=== PATIENT | male | born 1950 ===

== ENCOUNTER 2017-09-17 16:16 | Observation (INO) | payer SELFPAY ==
[2017-09-17 16:16] VITALS: BMI 32.5
[2017-09-17 16:23] VITALS: RESP 18
[2017-09-17 17:57] LABS: BASO % 0.2 % (0.0-2.0); EOS # 0.1 K/uL (0.0-0.7); EOS % 0.5 % (0.0-4.0); HEMATOCRIT 46.1 % (35.0-51.0); LYMPH # 1.1 K/uL (1.0-4.3); LYMPH % 9.9 % (20.0-40.0); MEAN CELL VOLUME 88.3 fl (80.0-94.0); MEAN CORPUSCULAR HEMOGLOBIN 28.2 pg (27.0-31.0); MEAN PLATELET VOLUME 8.2 fl (7.2-11.7); MONO # 0.8 K/uL (0.0-0.8); MONO % 7.4 % (0.0-10.0); NEUT # 9.4 K/uL (1.8-7.0); NRBC % 0.1 % (0.0-0.0); PLATELET COUNT 250 K/uL (130-400); RED CELL DISTRIBUTION WIDTH 13.6 % (11.5-14.5); WHITE BLOOD COUNT 11.4 K/uL (4.8-10.8)
[2017-09-17 18:09] LABS: ALB/GLOB RATIO 1.3 (1.0-2.1); ALKALINE PHOSPHATASE 77 U/L (38-126); ALT/SGPT 23 U/L (21-72); AST/SGOT 27 U/L (17-59); BILIRUBIN,TOTAL 0.4 mg/dl (0.2-1.3); BLOOD UREA NITROGEN 12 mg/dl (9-20); CALCIUM 8.7 mg/dL (8.4-10.2); CARBON DIOXIDE 26 mmol/L (22-30); CHLORIDE 104 mmol/L (98-107); GFR AFRICAN-AMERICAN > 60; GLUCOSE,RANDOM 107 mg/dL (75-110); POTASSIUM 4.1 MMOL/L (3.6-5.0); SODIUM 140 mmol/l (132-148); TOTAL PROTEIN 7.9 G/DL (6.3-8.2)
[2017-09-17 18:16] LABS: PARTIAL THROMBOPLASTIN TIME 49.8 Seconds (25.6-37.1)
--- NOTE | 2017-09-17 18:51 | ED PDOC ---
HPI: Chest Pain Time Seen by Provider: 09/17/17 16:26 Chief Complaint (Nursing): Chest Pain Chief Complaint (Provider): Chest Pain and Cough History Per: Patient History/Exam Limitations: no limitations Onset/Duration Of Symptoms: Days (x3) Current Symptoms Are (Timing): Still Present Additional Complaint(s): Gautam Collins, a 66 year old male, with a past medical history pulmonary embolism, deep vein thrombosis hypercholesterolemia and pneumonia(diagnosed 3x in the past) presents to the ED complaining of chest pain and cough x3 days. As per patient the cough is productive of green sputum but no hemoptysis. Patent does not some chills rhinnorhea, body aches. Denies fever and shortness of breath. Patient further states that his right lower leg has been swollen for the past week. PMF: [facility] - Risk Factors PE Risk Factors: Pos: Previous DVT, Previous PE Past Medical History Reviewed: Historical Data, Nursing Documentation, Vital Signs Vital Signs: Last Vital Signs Temp 98.4 F 09/17/17 16:21 Pulse 106 H 09/17/17 16:34 Resp 18 09/17/17 16:21 BP 130/85 09/17/17 16:34 Pulse Ox 95 09/17/17 20:16 - Medical History PMH: Deep Vein Thrombosis, Hypercholesterolemia, Pneumonia, Pulmonary Embolism ( x2) Denies: HIV, Chronic Kidney Disease - Surgical History Surgical History: Cholecystectomy, Hernia Repair Other surgeries: Carson filter - Family History Family History: States: Unknown Family Hx, Diabetes, Hypertension Other Family History: Cancer - Social History Current smoker - smoking cessation education provided: No Ex-Smoker (has not smoked in the last 12 months): No Alcohol: None Drugs: Denies - Immunization History Hx Tetanus Toxoid Vaccination: No Hx Influenza Vaccination: No Hx Pneumococcal Vaccination: No - Home Medications Home Medications: Ambulatory Orders Medication Instructions Recorded Warfarin [Coumadin] 5 mg PO DAILY #7 tab 11/08/15 Simvastatin 20 mg PO DAILY 08/30/16 Albuterol HFA [Ventolin HFA 90 2 puff IH [id number] PRN #1 inhaler 10/25/16 mcg/actuation (8 g)] Azithromycin [Zithromax] 1 tab PO DAILY #6 tab 10/25/16 Promethazine/Codeine 5 ml PO Q12 PRN #100 ml 10/25/16 [Codeine/Promethazine 10 MG/5 Ml-6.25 MG/5 Ml] - Allergies Allergies/Adverse Reactions: Allergies Allergy/AdvReac Type Severity Reaction Status Date / Time Penicillins Allergy RASH Verified 09/17/17 16:21 MARION Risk Score for UA/NSTEMI - MARION Risk Score Age > 64: YES 3 or more CAD Risk Factors: NO Known CAD (Stenosis greater than 50%): NO Aspirin use in past 7 days: NO Severe Angina: NO EKG ST changes greater than 0.5mm: NO Positive Cardiac Marker: NO MARION Score: 1 Risk %: 5% Wells Criteria for PE - Wells Criteria for Pulmonary Embolism Clinical Signs and Symptoms of DVT: Yes P.E is #1 Diagnosis, or Equally Likely: No Heart Rate >100: Yes Previous, objectively diagnosed PE or DVT: Yes Hemoptysis: No Malignancy w/treatment within 6 months, or palliative: No Total Score: 6.0 Review of Systems ROS Statement: Except As Marked, All Systems Reviewed And Found Negative Constitutional: Positive for: Chills. Negative for: Fever ENT: Positive for: Nose Discharge Cardiovascular: Positive for: Chest Pain Respiratory: Positive for: Cough. Negative for: Shortness of Breath Musculoskeletal: Positive for: Other (swollen left lower leg) Physical Exam - Reviewed Nursing Documentation Reviewed: Yes Vital Signs Reviewed: Yes - Physical Exam Appears: Positive for: Non-toxic, No Acute Distress (tired appearing) Head Exam: Positive for: ATRAUMATIC, NORMOCEPHALIC Skin: Positive for: Warm, Dry Eye Exam: Positive for: EOMI, PERRL ENT: Negative for: Pharyngeal Erythema, Tonsillar Exudate Neck: Positive for: Painless ROM, Supple Cardiovascular/Chest: Positive for: Tachycardia. Negative for: Murmur Respiratory: Negative for: Accessory Muscle Use, Rales, Wheezing, Respiratory Distress Gastrointestinal/Abdominal: Positive for: Soft. Negative for: Tenderness Back: Positive for: Normal Inspection. Negative for: Decreased ROM Extremity: Positive for: Pedal Edema (RIGHT lower leg pitting: up to superior ankle), Calf Tenderness, Swelling. Negative for: Deformity Lymphatic: Negative for: Adenopathy Neurologic/Psych: Positive for: Alert. Negative for: Motor/Sensory Deficits - Laboratory Results Result Diagrams: 09/17/17 17:50 09/17/17 17:50 - ECG O2 Sat by Pulse Oximetry: 95 (RA) Pulse Ox Interpretation: Normal Medical Decision Making Medical Decision Makin Initial Impression 66 y/o female presenting with cough and chest pain Differential: Pulmonary Embolism, Pneumonia, Bronchitis, URI, Influenza, ACS, CHF Initial Plan: * EKG * B-type natriuretic * CMP * Troponin * CBC * Partial Thromboplastin * Prothrombin Time * Chest x-ray * Tylenol 975 PO * Zithromycin 500mg IV * Blood Culture * Urine Culture * Influenza A B * Duplex Lower Etrm * Reevaluation CXR unremarkable Labs: INR 3 (therapeutic), No emergently significant lab abnormalities. US negative for DVT Pt needs hospitalization for chest pain with cardiovascular risk factors, needs serial enzymes to r/o ACS. Scribe Attestation Documented by May Chaudhary acting as a scribe for Herminia You MD. Provider Attestation All medical record entries made by the Scribe were at my direction and personally dictated by me. I have reviewed the chart and agree that the record accurately reflects my personal performance of the history, physical exam, medical decision making, and the department course for this patient. I have also personally directed, reviewed, and agree with the discharge instructions and disposition. Disposition - Clinical Impression Clinical Impression: Chest pain Discussed With : Kev Morel Doctor Will See Patient In The: ED Counseled Patient/Family Regarding: Studies Performed, Diagnosis - Disposition Disposition Time: 19:00 Condition: FAIR - Pt Status Changed To: Hospital Disposition Of: Observation - POA Present On Arrival: Deep Vein Thrombosis / PE (history)
[2017-09-17 19:27] LABS: EOSINOPHIL 1 % (0-7); NEUTROPHIL 81 % (42-75); REACTIVE LYMPHOCYTES 3 % (0-0); TOTAL CELLS COUNTED 100
[2017-09-17 19:30] LABS: LARGE PLATELETS PRESENT
[2017-09-17 19:39] LABS: RBC URINE < 1 /hpf (0-3); URINE BILIRUBIN NEGATIVE (NEGATIVE); URINE COLOR STRAW (YELLOW); URINE GLUCOSE (UA) NEG (Normal); URINE KETONE NEGATIVE (NEGATIVE); URINE LEUKOCYTE ESTERASE NEG Leu/uL (Negative); URINE PROTEIN NEGATIVE (NEGATIVE); URINE UROBILINOGEN 0.2-1.0 mg/dL (0.2-1.0)
[2017-09-17 19:45] LABS: URINE BLOOD NEGATIVE (NEGATIVE)
--- NOTE | 2017-09-17 19:45 | US ---
EXAM: US Duplex Right Lower Extremity Veins CLINICAL HISTORY: 66 years old, male; Pain; Leg, lower; Right; Additional info: Swelling h/o dvt TECHNIQUE: Real-time ultrasound scan of the veins of the right lower extremity with color Doppler flow, spectral waveform analysis and compression. COMPARISON: No relevant prior studies available. FINDINGS: Deep veins: Unremarkable. No DVT in the visualized common femoral, femoral, proximal deep femoral or popliteal veins. The veins demonstrate normal color flow, are normally compressible, with normal phasic flow and/or augmentation response. Superficial veins: Unremarkable. Soft tissues: No acute findings. No popliteal cyst. IMPRESSION: No DVT.
[2017-09-17] MEDS ORDERED: Iodixanol 320 MG/ML 100 ML BOTTLE IV ONE (21:25)
[2017-09-17] MEDS ORDERED: Sodium Chloride 0.9% 50 ML IV ONE (21:25)
--- NOTE | 2017-09-17 21:27 | CP.PCM.HP ---
History of Present Illness - History of Present Illness History of Present Illness: [facility] #[id number] 66 y/o male with a PMHx remarkable for PE (s/p IVC filter 2014), DVTx3, and hypertriglyceridemia presented complaining of chest pain. Chest pain started roughly 3 days ago. Reports he started feeling under the weather with URI symptoms after seeing a sick friend and slowly felt more ill and developed chest pain/tightness. Pain is located substernally, is 5/10, constant, pressure like, nonradiating. Denies alleviating factors but reports it is exacerbated with coughing and deep respirations. Pt reports associated cough with minimal greenish phlegm production. Pt also reports subjective fever and chills during the past 3 days but denies any currently. Denies cardinal cardiac symptoms. Denies changes in exercise tolerance or chest pain with exertion. Denies headaches, changes in vision, dizziness, palpitations, N/V/D/C, left arm/jaw pain, diaphoresis, urinary symptoms, numbness/tingling. ROS: as per HPI PMD: [facility], last visit 05/2017, INR check PMHx: PE, DVTx3, hypertriglyceridemia Meds: Warfarin 3mg QD (as per eCW), Simvastatin 20mg QD ALL: penicillins (mild rash) PsurgHx: IVC Filter 2014, cholecystecomy, umbilicial hernia repair PHopsHx: pneumonia 2016 Social: denies tobacco/etoh abuse, denies drug abuse -lives at home with -Next of kin: , as per summary -full code FamilyHx: denies CAD, coagulapathy, OR, stroke ED Course: Vitals on presentation T 98.4, HR 107, BP 147/97, RR 18, POX 95% RA Labs CBC: 11.4>14.7/46.1<250 CMP: wnl Troponin I: <0.0120 NT-Pro-BNP: 57.8 Influenza A/B: neg INR: 3.0 Imaging EKG: NSR, normal axis, rate ~97 bpm CXR: no focal infiltrate CTA: No PE, multiple pulmonary nodules in left hemithorax that have increased in size since prior studies Ext u/s: No DVT Present on Admission - Present on Admission Any Indicators Present on Admission: Yes History of DVT/PE: Yes History of Uncontrolled Diabetes: No Urinary Catheter: No Decubitus Ulcer Present: No Past Patient History - Past Medical History & Family History Past Medical History?: Yes - Past Social History Alcohol: None Drugs: Denies - CARDIAC Hx Hypercholesterolemia: Yes - PULMONARY Hx Pneumonia: Yes Hx Pulmonary Embolism: Yes (x2) - NEUROLOGICAL Hx Neurological Disorder: No - HEENT Hx HEENT Problems: No - RENAL Hx Chronic Kidney Disease: No - ENDOCRINE/METABOLIC Hx Endocrine Disorders: No - HEMATOLOGICAL/ONCOLOGICAL Hx Human Immunodeficiency Virus (HIV): No - INTEGUMENTARY Hx Dermatological Problems: No - MUSCULOSKELETAL/RHEUMATOLOGICAL Hx Musculoskeletal Disorders: No - GASTROINTESTINAL Hx Gastrointestinal Disorders: No - GENITOURINARY/GYNECOLOGICAL Hx Genitourinary Disorders: No - PSYCHIATRIC Hx Psychophysiologic Disorder: No Hx Emotional Abuse: No Hx Physical Abuse: No Hx Substance Use: No - SURGICAL HISTORY Hx Cholecystectomy: Yes - ANESTHESIA Hx Anesthesia: Yes Hx Anesthesia Reactions: No Hx Malignant Hyperthermia: No Meds Allergies/Adverse Reactions: Allergies Allergy/AdvReac Type Severity Reaction Status Date / Time Penicillins Allergy RASH Verified 09/17/17 16:21 Physical Exam - Constitutional Appears: Well, Non-toxic, No Acute Distress - Head Exam Head Exam: ATRAUMATIC, NORMOCEPHALIC - Eye Exam Eye Exam: EOMI, Normal appearance, PERRL. absent: Conjunctival injection, Scleral icterus - ENT Exam ENT Exam: Mucous Membranes Moist - Neck Exam Neck exam: Positive for: Full Rom. Negative for: Lymphadenopathy, Tenderness - Respiratory Exam Respiratory Exam: Clear to Auscultation Bilateral, NORMAL BREATHING PATTERN Results - Vital Signs Recent Vital Signs: Last Vital Signs Temp 98.4 F 09/17/17 16:21 Pulse 106 H 09/17/17 16:34 Resp 18 09/17/17 16:21 BP 130/85 09/17/17 16:34 Pulse Ox 95 09/17/17 20:32 - Labs Result Diagrams: 09/17/17 17:50 09/17/17 17:50 Labs: Laboratory Results - last 24 hr 09/17/17 09/17/17 09/17/17 17:50 17:50 17:50 WBC 11.4 H RBC 5.22 Hgb 14.7 Hct 46.1 MCV 88.3 MCH 28.2 MCHC 32.0 L RDW 13.6 Plt Count 250 MPV 8.2 Neut % (Auto) 82.0 H Lymph % (Auto) 9.9 L [place] % (Auto) 7.4 Eos % (Auto) 0.5 Baso % (Auto) 0.2 Neut # 9.4 H Lymph # 1.1 [place] # 0.8 Eos # 0.1 Baso # 0.0 Neutrophils % (Manual) 81 H Band Neutrophils % 2 Lymphocytes % (Manual) 7 L Reactive Lymphs % 3 H Monocytes % (Manual) 6 Eosinophils % (Manual) 1 Platelet Estimate Normal Large Platelets Present PT INR APTT Sodium 140 Potassium 4.1 Chloride 104 Carbon Dioxide 26 Anion Gap 14 BUN 12 Creatinine 1.0 Est GFR ( Amer) > 60 Est GFR (Non-Af Amer) > 60 Random Glucose 107 Calcium 8.7 Total Bilirubin 0.4 AST 27 ALT 23 Alkaline Phosphatase 77 Troponin I < 0.0120 NT-Pro-B Natriuret Pep 57.8 Total Protein 7.9 Albumin 4.5 Globulin 3.4 Albumin/Globulin Ratio 1.3 Urine Color Urine Clarity Urine pH Ur Specific [place] Urine Protein Urine Glucose (UA) Urine Ketones Urine Blood Urine Nitrate Urine Bilirubin Urine Urobilinogen Ur Leukocyte Esterase Urine RBC (Auto) Ur Squamous Epith Cells Influenza Typ A,B (EIA) Negative for flu a/b 09/17/17 09/17/17 17:50 18:30 WBC RBC Hgb Hct MCV MCH MCHC RDW Plt Count MPV Neut % (Auto) Lymph % (Auto) [place] % (Auto) Eos % (Auto) Baso % (Auto) Neut # Lymph # [place] # Eos # Baso # Neutrophils % (Manual) Band Neutrophils % Lymphocytes % (Manual) Reactive Lymphs % Monocytes % (Manual) Eosinophils % (Manual) Platelet Estimate Large Platelets PT 34.0 H INR 3.0 H APTT 49.8 H Sodium Potassium Chloride Carbon Dioxide Anion Gap BUN Creatinine Est GFR ( Amer) Est GFR (Non-Af Amer) Random Glucose Calcium Total Bilirubin AST ALT Alkaline Phosphatase Troponin I NT-Pro-B Natriuret Pep Total Protein Albumin Globulin Albumin/Globulin Ratio Urine Color Straw Urine Clarity Clear Urine pH 7.0 Ur Specific [place] 1.008 Urine Protein Negative Urine Glucose (UA) Neg Urine Ketones Negative Urine Blood Negative Urine Nitrate Negative Urine Bilirubin Negative Urine Urobilinogen 0.2-1.0 Ur Leukocyte Esterase Neg Urine RBC (Auto) < 1 Ur Squamous Epith Cells < 1 Influenza Typ A,B (EIA) Assessment & Plan - Assessment and Plan (Free Text) Assessment: 66 y/o male with PMHx of PE, DVT, hypertriglyceridemia admitted for atypical chest pain to rule out ACS based on medical history. Plan: 1) Atypical Chest Pain -rule out ACS -Troponin I negative, will trend Q8H for two more values -telemetry monitoring -unlikely pneumonia based on negative imaging studies, afebrile, no cough during interview -PE/DVT ruled out based on negative imaging and INR 3.0 -will f/u CBC in AM to check WBC -s/p 500mg IV Azithromycin in ED -repeat EKG in AM -consider cardio consult 2) Hx of DVT/PE -INR 3.0 -C/w Warfarin 3mg QD 3) Metabolic Syndrome: -HbA1c 2016: 5.7 -Lipid Panel 2016: elevated triglycerides w/o hypercholesterolemia -c/w Simvastatin 20mg QD -f/u HbA1c, Lipid, TSH labs 4) Diet: -heart healthy 5) Code Status -full code 6) DVT Prophylaxis -INR 3.0 -c/w Warfarin 3mg QD
--- NOTE | 2017-09-17 22:27 | CT ---
EXAM: CT Angiography Chest With Intravenous Contrast CLINICAL HISTORY: 66 years old, male; Pain; Chest pain; Type not specified; Additional info: Chest pain h/o pe TECHNIQUE: Axial computed tomographic angiography images of the chest with intravenous contrast using pulmonary embolism protocol. All CT scans at this facility use one or more dose reduction techniques, viz.: automated exposure control; ma/kV adjustment per patient size (including targeted exams where dose is matched to indication; i.e. head); or iterative reconstruction technique. MIP reconstructed images were created and reviewed. Coronal and sagittal reformatted images were created and reviewed. CONTRAST: 95 mL of visipaque 320 administered intravenously. COMPARISON: CT - ANGIO CHEST PE PROTOCOL 2015-11-06 21:19 FINDINGS: Pulmonary arteries: No pulmonary embolism. Aorta: No thoracic aortic aneurysm. Lungs: No mass. No consolidation. Multiple pulmonary nodules are again identified within the right hemithorax. The first measures 5.2 mm, (series 4, image 45) increased from 4.5 mm on the previous examination (series 5, image 46). The second measures 4 mm (series 4, image 51) increased in size from 3 mm on the previous examination (series 5, image 51). The third measures 7 mm (series 4, image 53) increased in size from 6 mm on previous examination (series 5, image 54). Bibasilar atelectasis persists. Pleural spaces: No significant effusion. No pneumothorax. Heart: The heart is enlarged, without significant pericardial effusion. No evidence of right heart dysfunction. Bones: No acute fracture. Lymph nodes: No pathologically enlarged lymph nodes. IMPRESSION: No pulmonary embolism. Multiple pulmonary nodules within the right hemithorax, increasing in size as detailed above. ACR White Paper guidelines (MacMahon, et al. Radiology 2017; 284(1):228-43) suggest the following. For low-risk patients recommend follow-up chest CT at 3-6 months. If unchanged consider an additional follow-up CT at 18-24 months. For high-risk patients initial follow-up chest CT at 3-6 months and if unchanged, 18-24 months. Bibasilar atelectasis, unchanged from prior.
[2017-09-17] MEDS ORDERED: Albuterol HFA 90 mcg/actuation (8 g) IH PRN (22:43)
[2017-09-18 05:35] LABS: HEMATOCRIT 47.2 % (35.0-51.0); MEAN CELL VOLUME 88.1 fl (80.0-94.0); MEAN CORPUSCULAR HEMOGLOBIN 28.4 pg (27.0-31.0); MEAN CORPUSCULAR HGB CONC 32.2 g/dL (33.0-37.0); RED CELL DISTRIBUTION WIDTH 13.5 % (11.5-14.5); WHITE BLOOD COUNT 10.8 K/uL (4.8-10.8)
[2017-09-18 05:45] LABS: POTASSIUM 4.1 MMOL/L (3.6-5.0)
[2017-09-18 05:53] LABS: ALB/GLOB RATIO 1.3 (1.0-2.1); ALKALINE PHOSPHATASE 81 U/L (38-126); ALT/SGPT 34 U/L (21-72); AST/SGOT 23 U/L (17-59); BILIRUBIN,TOTAL 0.9 mg/dl (0.2-1.3); BLOOD UREA NITROGEN 12 mg/dl (9-20); CALCIUM 8.6 mg/dL (8.4-10.2); CARBON DIOXIDE 27 mmol/L (22-30); CHLORIDE 105 mmol/L (98-107); GFR AFRICAN-AMERICAN > 60; GLUCOSE,RANDOM 113 mg/dL (75-110); SODIUM 144 mmol/l (132-148); TOTAL PROTEIN 7.7 G/DL (6.3-8.2)
[2017-09-18 06:09] LABS: THYROID STIMULATING HORMONE 3.19 mIU/ML (0.46-4.68)
[2017-09-18] MEDS ORDERED: Pneumococcal 23-Valent Vaccine IM ONE (09:00)
[2017-09-18] MEDS ORDERED: Influenza Vaccine 18yr & older 0.5 ML/45 MCG SYR IM ONE (09:45)
--- NOTE | 2017-09-18 11:24 | CP.PCM.DIS ---
Provider - Provider Date of Admission: 09/17/17 19:35 Attending physician: Orlin Roman MD Time Spent in preparation of Discharge (in minutes): 25 Diagnosis - Discharge Diagnosis (1) Chest pain Status: Acute Priority: Medium Comment: improved (2) Productive cough Status: Acute Priority: Medium Comment: Improved. rx given for phenergan-codeine syrup (3) Dyslipidemia Status: Chronic Priority: Medium Comment: continue home meds (4) Hx of deep venous thrombosis Status: Chronic Priority: Medium Comment: Hx of DVT with hx of pulmonary embolus. continue Warfarin Hospital Course - Lab Results Lab Results: Most Recent Lab Values WBC 10.8 K/uL (4.8-10.8) 09/18/17 04:20 RBC 5.36 Mil/uL (4.40-5.90) 09/18/17 04:20 Hgb 15.2 g/dL (12.0-18.0) 09/18/17 04:20 Hct 47.2 % (35.0-51.0) 09/18/17 04:20 MCV 88.1 fl (80.0-94.0) 09/18/17 04:20 MCH 28.4 pg (27.0-31.0) 09/18/17 04:20 MCHC 32.2 g/dL (33.0-37.0) L 09/18/17 04:20 RDW 13.5 % (11.5-14.5) 09/18/17 04:20 Plt Count 257 K/uL (130-400) 09/18/17 04:20 MPV 8.2 fl (7.2-11.7) 09/17/17 17:50 Neut % (Auto) 82.0 % (50.0-75.0) H 09/17/17 17:50 Lymph % (Auto) 9.9 % (20.0-40.0) L 09/17/17 17:50 [place] % (Auto) 7.4 % (0.0-10.0) 09/17/17 17:50 Eos % (Auto) 0.5 % (0.0-4.0) 09/17/17 17:50 Baso % (Auto) 0.2 % (0.0-2.0) 09/17/17 17:50 Neut # 9.4 K/uL (1.8-7.0) H 09/17/17 17:50 Lymph # 1.1 K/uL (1.0-4.3) 09/17/17 17:50 [place] # 0.8 K/uL (0.0-0.8) 09/17/17 17:50 Eos # 0.1 K/uL (0.0-0.7) 09/17/17 17:50 Baso # 0.0 K/uL (0.0-0.2) 09/17/17 17:50 Neutrophils % (Manual) 81 % (42-75) H 09/17/17 17:50 Band Neutrophils % 2 % (0-2) 09/17/17 17:50 Lymphocytes % (Manual) 7 % (20-50) L 09/17/17 17:50 Reactive Lymphs % 3 % (0-0) H 09/17/17 17:50 Monocytes % (Manual) 6 % (0-10) 09/17/17 17:50 Eosinophils % (Manual) 1 % (0-7) 09/17/17 17:50 Platelet Estimate Normal (NORMAL) 09/17/17 17:50 Large Platelets Present 09/17/17 17:50 PT 26.5 Seconds (9.8-13.1) H D 09/18/17 04:20 INR 2.4 (0.9-1.2) H D 09/18/17 04:20 APTT 49.8 Seconds (25.6-37.1) H 09/17/17 17:50 Sodium 144 mmol/l (132-148) 09/18/17 04:30 Potassium 4.1 MMOL/L (3.6-5.0) 09/18/17 04:30 Chloride 105 mmol/L (98-107) 09/18/17 04:30 Carbon Dioxide 27 mmol/L (22-30) 09/18/17 04:30 Anion Gap 16 (10-20) 09/18/17 04:30 BUN 12 mg/dl (9-20) 09/18/17 04:30 Creatinine 1.0 mg/dl (0.8-1.5) 09/18/17 04:30 Est GFR ( Amer) > 60 09/18/17 04:30 Est GFR (Non-Af Amer) > 60 09/18/17 04:30 Random Glucose 113 mg/dL (75-110) H 09/18/17 04:30 Calcium 8.6 mg/dL (8.4-10.2) 09/18/17 04:30 Total Bilirubin 0.9 mg/dl (0.2-1.3) 09/18/17 04:30 AST 23 U/L (17-59) 09/18/17 04:30 ALT 34 U/L (21-72) 09/18/17 04:30 Alkaline Phosphatase 81 U/L (38-126) 09/18/17 04:30 Troponin I < 0.0120 ng/mL (0.00-0.120) 09/18/17 09:45 NT-Pro-B Natriuret Pep 57.8 pg/ml (0-900) 09/17/17 17:50 Total Protein 7.7 G/DL (6.3-8.2) 09/18/17 04:30 Albumin 4.3 g/dL (3.5-5.0) 09/18/17 04:30 Globulin 3.4 gm/dL (2.2-3.9) 09/18/17 04:30 Albumin/Globulin Ratio 1.3 (1.0-2.1) 09/18/17 04:30 Triglycerides 159 mg/DL (0-149) H D 09/17/17 04:20 Cholesterol 229 mg/dL (0-199) H 09/17/17 04:20 LDL Cholesterol Direct 138 mg/dL (0-129) H 09/17/17 04:20 HDL Cholesterol 50 MG/DL (30-70) 09/17/17 04:20 TSH 3rd Generation 3.19 mIU/ML (0.46-4.68) 09/17/17 04:20 Urine Color Straw (YELLOW) 09/17/17 18:30 Urine Clarity Clear (Clear) 09/17/17 18:30 Urine pH 7.0 (5.0-8.0) 09/17/17 18:30 Ur Specific [place] 1.008 (1.003-1.030) 09/17/17 18:30 Urine Protein Negative mg/dL (NEGATIVE) 09/17/17 18:30 Urine Glucose (UA) Neg mg/dL (Normal) 09/17/17 18:30 Urine Ketones Negative mg/dL (NEGATIVE) 09/17/17 18:30 Urine Blood Negative (NEGATIVE) 09/17/17 18:30 Urine Nitrate Negative (NEGATIVE) 09/17/17 18:30 Urine Bilirubin Negative (NEGATIVE) 09/17/17 18:30 Urine Urobilinogen 0.2-1.0 mg/dL (0.2-1.0) 09/17/17 18:30 Ur Leukocyte Esterase Neg [place]/uL (Negative) 09/17/17 18:30 Urine RBC (Auto) < 1 /hpf (0-3) 09/17/17 18:30 Ur Squamous Epith Cells < 1 /hpf (0-5) 09/17/17 18:30 Influenza Typ A,B (EIA) Negative for flu a/b (NEGATIVE) 09/17/17 17:50 - Hospital Course Hospital Course: 66 y/o male with PMHx of PE, DVTx3 and hypertriglyceridemia admitted for non- radiating substernal chest pain with productive cough and WBC 11.4. Patient was given single dose of Azithromycin 500mg in ED and had an extremity U/S negative for DVT, CXR negative for pneumonia, chest CTA negative for pulmonary embolism and three negative serial troponin levels. Patient's initial and repeat EKG's both showed a normal sinus rhythm. Patient's chest pain resolved and his productive cough improved while in hospital, with his WBC decreasing to 10.8. Pt will be discharged home in stable condition with prescription for phenergan- codeine cough syrup. Patient will follow up at the [facility] on 09/28 at 11am. Discharge Exam - Head Exam Head Exam: ATRAUMATIC, NORMOCEPHALIC - Eye Exam Eye Exam: EOMI, Normal appearance - ENT Exam ENT Exam: Mucous Membranes Moist, Normal Exam - Neck Exam Neck exam: Full Rom, Normal Inspection - Respiratory Exam Respiratory Exam: NORMAL BREATHING PATTERN, UNREMARKABLE. absent: Rales, Wheezes, Respiratory Distress - Cardiovascular Exam Cardiovascular Exam: REGULAR RHYTHM, +S1, +S2. absent: Tachycardia, JVD - GI/Abdominal Exam GI & Abdominal Exam: Normal Bowel Sounds, Soft - Rectal Exam Rectal Exam: Deferred - Extremities Exam Extremities exam: normal capillary refill, pedal edema, pedal pulses present Additional comments: Mild non-pitting unilateral edema to RLE, chronic in nature per patient. Non- tender - Neurological Exam Neurological exam: Alert, Oriented x3 - Psychiatric Exam Psychiatric exam: Normal Affect, Normal Mood - Skin Skin Exam: Dry, Intact, Normal Color Discharge Plan - Discharge Medications Prescriptions: Promethazine/Codeine [Phenergan/Codeine Oral Syrup] 5 ml PO Q12 PRN #100 ml PRN Reason: Cough - Follow Up Plan Condition: FAIR Disposition: HOME/ ROUTINE Patient education suggested?: No Instructions: Noncardiac Chest Pain (DC) Additional Instructions: Patient will follow up in [facility] at 11am on 09/28 for routine primary medical care. If experiences chest pain not related to cough and not relieved by rest, return to the nearest emergency room.
--- NOTE | 2017-09-18 11:59 | RAD ---
HISTORY: Cough, fever. Portable study 17:25. COMPARISON: 10/25/2016. TECHNIQUE: Chest PA and lateral FINDINGS: LUNGS: No active pulmonary disease. Improved aeration of the lungs compared to the prior study. PLEURA: No significant pleural effusion identified. No pneumothorax apparent. CARDIOVASCULAR: No radiographic findings to suggest acute or significant cardiovascular disease. OSSEOUS STRUCTURES: No significant abnormalities. VISUALIZED UPPER ABDOMEN: Normal. OTHER FINDINGS: None. IMPRESSION: No active disease. No significant interval change compared to the prior examination(s).
[2017-09-18 12:20] VITALS: BP 113/76; PULSE 91; TEMP 97.6; O2SAT 94
--- NOTE | 2017-09-18 13:43 | CARD ---
APPROVED REPORT EKG Measurement Heart [id number] <Conclusion> Normal sinus rhythm Normal ECG
--- NOTE | 2017-09-18 13:48 | CARD ---
APPROVED REPORT EKG Measurement Heart [id number] <Conclusion> Normal sinus rhythm Nonspecific T wave abnormality Abnormal ECG
== END 2017-09-18 13:37 | disposition home or self-care (01) ==
LOC: H.ER 16:16 → H.ERHOLD 19:35 → H.TEL 22:12
PROVIDERS: ADMIT Family Medicine; ATTEND Family Medicine
DX: R07.89 Other chest pain (principal); R05 Cough; E78.5 Hyperlipidemia, unspecified; Z88.0 Allergy status to penicillin; Z23 Encounter for immunization; Z86.711 Personal history of pulmonary embolism; Z86.718 Personal history of other venous thrombosis and embolism; E78.00 Pure hypercholesterolemia, unspecified; E78.1 Pure hyperglyceridemia; E88.81 Metabolic syndrome and other insulin resistance; Z79.01 Long term (current) use of anticoagulants
CPT/HCPCS: 36415; 71020; 71275; 80053; 80061; 81003; 83036; 83880; 84443; 84484; 85025; 85027; 85610; 85730; 87040; 87086; 87804; 90471; 93005; 93971; 99285; G0378; J0456; J7060; Q2035; Q9967

== ENCOUNTER 2017-11-05 18:45 | Emergency (ER) | payer SELFPAY ==
[2017-11-05 18:46] VITALS: BMI 32.5
[2017-11-05 18:59] VITALS: BP 126/77; PULSE 76; RESP 16; TEMP 97.7; O2SAT 100
--- NOTE | 2017-11-05 19:09 | ED PDOC ---
HPI: Male Pain Time Seen by Provider: 11/05/17 19:01 Chief Complaint (Nursing): Male Genitourinary Chief Complaint (Provider): Hematuria History Per: Patient History/Exam Limitations: no limitations Onset/Duration Of Symptoms: Days (x1) Current Symptoms Are (Timing): Still Present Additional Complaint(s): 66 year old male presents to the emergency department complaining of 4 episodes of hematuria, onset today. Associated with abdominal pain while urinating. Patient also reports having back pain for 2 weeks. Of note, patient has been taking Coumadin for blood clots for the past 5 years. PMD: [facility] Past Medical History Reviewed: Historical Data, Nursing Documentation, Vital Signs Vital Signs: Last Vital Signs Temp 97.7 F 11/05/17 18:57 Pulse 76 11/05/17 18:57 Resp 16 11/05/17 18:57 BP 126/77 11/05/17 18:57 Pulse Ox 100 11/05/17 18:57 - Medical History PMH: Deep Vein Thrombosis, HTN, Hypercholesterolemia, Pneumonia, Pulmonary Embolism (x2) Denies: HIV, Chronic Kidney Disease - Surgical History Surgical History: Cholecystectomy, Hernia Repair - Family History Family History: States: Diabetes, Hypertension - Immunization History Hx Tetanus Toxoid Vaccination: No Hx Influenza Vaccination: No Hx Pneumococcal Vaccination: No - Home Medications Home Medications: Ambulatory Orders Medication Instructions Recorded Simvastatin 20 mg PO DAILY 08/30/16 Promethazine/Codeine 5 ml PO Q12 PRN #100 ml 09/18/17 [Phenergan/Codeine Oral Syrup] Warfarin [Coumadin] 3 mg PO QD5 tab 09/18/17 Cephalexin [Keflex] 500 mg PO QID #28 capsule 11/05/17 - Allergies Allergies/Adverse Reactions: Allergies Allergy/AdvReac Type Severity Reaction Status Date / Time Penicillins Allergy RASH Verified 09/17/17 16:21 Review of Systems ROS Statement: Except As Marked, All Systems Reviewed And Found Negative Constitutional: Negative for: Fever, Chills Gastrointestinal: Positive for: Abdominal Pain (with urination) Genitourinary Male: Positive for: Dysuria, Hematuria Physical Exam - Reviewed Nursing Documentation Reviewed: Yes Vital Signs Reviewed: Yes - Physical Exam Appears: Positive for: Non-toxic, No Acute Distress Head Exam: Positive for: ATRAUMATIC, NORMAL INSPECTION, NORMOCEPHALIC Skin: Positive for: Normal Color, Warm, Dry Eye Exam: Positive for: EOMI, Normal appearance, PERRL Neck: Positive for: Normal, Painless ROM Cardiovascular/Chest: Positive for: Regular Rate, Rhythm. Negative for: Murmur Respiratory: Positive for: Normal Breath Sounds. Negative for: Accessory Muscle Use, Respiratory Distress Gastrointestinal/Abdominal: Positive for: Normal Exam, Soft. Negative for: Tenderness, Other (flank tenderness) Back: Positive for: Normal Inspection. Negative for: L CVA Tenderness, R CVA Tenderness Extremity: Positive for: Normal ROM. Negative for: Deformity Neurologic/Psych: Positive for: Alert, Oriented. Negative for: Motor/Sensory Deficits - Laboratory Results Result Diagrams: 11/05/17 19:24 11/05/17 19:24 - ECG O2 Sat by Pulse Oximetry: 100 (RA) Pulse Ox Interpretation: Normal - Progress ED Course And Treament: ROCEPHIN 1 GM IV X 1 DOSE IN ED WITHOUT ANY REACTION ADVISED NO COUMADIN TODAY AND F/U WITH PMD ON MONDAY FOR REPEAT INR WILL GIVE UROLOGY F/U. D/W FORENSIC ANTHROPOLOGIST WHO KNOWS PATIENT WELL. WILL COME TO ED TO D/W PATIENT F/U. Medical Decision Making Medical Decision Making: Time: 18:55 Initial Plan: --CMP --Lipase --CBC w/ differential --PTT --Prothrombin time --Urine culture --Urinalysis --Pending CT Abdomen/Pelvis without contrast --Reevaluation Time: 20:12 CT of Abdomen and Pelvis without IV contrast FINDINGS: Lower thorax: Mild atelectasis/scarring. Few pulmonary nodules, up to 0.5 cm. ABDOMEN: Liver: Unremarkable. Gallbladder and bile ducts: Cholecystectomy. No significant ductal dilation. Pancreas: Unremarkable. No ductal dilation. Spleen: No splenomegaly. Adrenals: No mass. Kidneys and ureters: No renal calculi. No hydronephrosis. Stomach and bowel: No definite mural thickening. No obstruction. Appendix: Normal caliber. No inflammation. PELVIS: Bladder: Unremarkable. No stones. Reproductive: Mildly enlarged prostate. ABDOMEN and PELVIS: Intraperitoneal space: No significant fluid collection. No free air. Bones/joints: No acute fracture. Soft tissues: Small umbilical hernia containing fat. Small inguinal hernias containing fat. Vasculature: IVC filter. Lymph nodes: No pathologically enlarged lymph nodes. IMPRESSION: 1. No definite CT evidence of urolithiasis. 2. Pulmonary nodules. Followup as clinically warranted. 3. Incidental/non-acute findings are described above. Thank you for allowing us to participate in the care of your patient. Dictated and Authenticated by: Armando Aguilar MD 11/05/2017 8:12 PM Eastern Time ([place] & [place]) Labs Reviewed: PT 45.1 INR 4.0 APTT 53.6 Scribe Attestation: Documented by Nayana Iyer, acting as a scribe for Afsaneh Nuñez PA-C Provider Scribe Attestation: All medical record entries made by the Scribe were at my direction and personally dictated by me. I have reviewed the chart and agree that the record accurately reflects my personal performance of the history, physical exam, medical decision making, and the department course for this patient. I have also personally directed, reviewed, and agree with the discharge instructions and disposition. Disposition - Clinical Impression Clinical Impression: Urinary tract infection - Patient ED Disposition Is Patient to be Admitted: No - Disposition Referrals: Joesph Waterman Jr., MD [Staff Provider] - Disposition: Routine/Home Disposition Time: 22:58 Condition: FAIR Additional Instructions: NO RUPERTO CEBALLOS COUMADIN HOY. SIGA CON CEBALLOS MEDICO SUGEY PARA CHEQUAR LA PRUEBA DE COUMADIN. LATA ZACKARY CECILE CON UROLOGO PARA CHEQUAR MAS. Prescriptions: Cephalexin [Keflex] 500 mg PO QID #28 capsule Instructions: Urinary Tract Infection in Men (ED), Elevated INR (ED) Forms: [employer] (Slovenian) Print Language: NAMIBIAN
[2017-11-05 19:43] LABS: BASO % 0.3 % (0.0-2.0); EOS # 0.1 K/uL (0.0-0.7); EOS % 1.2 % (0.0-4.0); HEMOGLOBIN 14.5 g/dL (12.0-18.0); LYMPH # 1.7 K/uL (1.0-4.3); LYMPH % 18.5 % (20.0-40.0); MEAN CELL VOLUME 87.1 fl (80.0-94.0); MEAN CORPUSCULAR HEMOGLOBIN 28.3 pg (27.0-31.0); MEAN CORPUSCULAR HGB CONC 32.5 g/dL (33.0-37.0); MEAN PLATELET VOLUME 8.4 fl (7.2-11.7); MONO # 0.9 K/uL (0.0-0.8); MONO % 9.8 % (0.0-10.0); NEUT # 6.3 K/uL (1.8-7.0); NEUT % 70.2 % (50.0-75.0); NRBC % 0.1 % (0.0-0.0); RBC 5.14 Mil/uL (4.40-5.90); RED CELL DISTRIBUTION WIDTH 13.6 % (11.5-14.5)
[2017-11-05 19:52] LABS: ALB/GLOB RATIO 1.3 (1.0-2.1); ALBUMIN 4.2 g/dL (3.5-5.0); ALT/SGPT 39 U/L (21-72); AST/SGOT 26 U/L (17-59); BLOOD UREA NITROGEN 15 mg/dl (9-20); CALCIUM 9.1 mg/dL (8.4-10.2); GFR AFRICAN-AMERICAN > 60; GFR NON-AFRICAN AMERICAN 56; LIPASE 122 U/L (23-300)
[2017-11-05 19:57] LABS: PARTIAL THROMBOPLASTIN TIME 53.6 Seconds (25.6-37.1)
[2017-11-05 19:59] LABS: PROTHROMBIN TIME 45.1 Seconds (9.8-13.1)
--- NOTE | 2017-11-05 20:12 | CT ---
EXAM: CT Abdomen and Pelvis Without Intravenous Contrast CLINICAL HISTORY: 66 years old, male; Pain; Abdominal pain; Other: B/l flank lt>rt hematuria; Additional info: Hematuria/back pain TECHNIQUE: Axial computed tomography images of the abdomen and pelvis without intravenous contrast. All CT scans at this facility use one or more dose reduction techniques, viz.: automated exposure control; ma/kV adjustment per patient size (including targeted exams where dose is matched to indication; i.e. head); or iterative reconstruction technique. Coronal and sagittal reformatted images were created and reviewed. COMPARISON: No relevant prior studies available. FINDINGS: Lower thorax: Mild atelectasis/scarring. Few pulmonary nodules, up to 0.5 cm. ABDOMEN: Liver: Unremarkable. Gallbladder and bile ducts: Cholecystectomy. No significant ductal dilation. Pancreas: Unremarkable. No ductal dilation. Spleen: No splenomegaly. Adrenals: No mass. Kidneys and ureters: No renal calculi. No hydronephrosis. Stomach and bowel: No definite mural thickening. No obstruction. Appendix: Normal caliber. No inflammation. PELVIS: Bladder: Unremarkable. No stones. Reproductive: Mildly enlarged prostate. ABDOMEN and PELVIS: Intraperitoneal space: No significant fluid collection. No free air. Bones/joints: No acute fracture. Soft tissues: Small umbilical hernia containing fat. Small inguinal hernias containing fat. Vasculature: IVC filter. Lymph nodes: No pathologically enlarged lymph nodes. IMPRESSION: 1. No definite CT evidence of urolithiasis. 2. Pulmonary nodules. Followup as clinically warranted. 3. Incidental/non-acute findings are described above.
[2017-11-05 20:49] LABS: URINE BILIRUBIN NEGATIVE (NEGATIVE); URINE BLOOD LARGE (NEGATIVE); URINE CLARITY TURBID (Clear); URINE COLOR RED (YELLOW); URINE GLUCOSE (UA) 50 mg/dL (Normal); URINE LEUKOCYTE ESTERASE NEG Leu/uL (Negative); URINE NITRATE NEGATIVE (NEGATIVE); URINE PROTEIN 100 mg/dL (NEGATIVE); URINE UROBILINOGEN 0.2-1.0 mg/dL (0.2-1.0)
[2017-11-05] MEDS ORDERED: cefTRIAXone (Rocephin) 1 gm Inj IVPB ONE (20:58)
== END 2017-11-05 23:20 | disposition home or self-care (01) ==
LOC: H.ER 18:45
DX: N39.0 Urinary tract infection, site not specified (principal); R79.1 Abnormal coagulation profile; E78.00 Pure hypercholesterolemia, unspecified; I10 Essential (primary) hypertension; Z79.01 Long term (current) use of anticoagulants; Z86.711 Personal history of pulmonary embolism; Z86.718 Personal history of other venous thrombosis and embolism; Z88.0 Allergy status to penicillin
CPT/HCPCS: 74176; 80053; 81003; 83690; 85025; 85610; 85730; 87086; 96365; 99283; J0696

== ENCOUNTER 2018-10-04 10:30 | Emergency (ER) | payer MEDICARE ==
[2018-10-04 10:36] VITALS: O2SAT 95
[2018-10-04 10:58] VITALS: BMI 25.7
[2018-10-04] MEDS ORDERED: Albuterol-Ipratrop 3 mg / 0.5 (3 ml) UD IH STA (11:00)
--- NOTE | 2018-10-04 11:00 | ED PDOC ---
HPI: SOB/CHF/COPD Time Seen by Provider: 10/04/18 10:49 Chief Complaint (Provider): shortness of breath History Per: Patient, Shop Helper (Hazel ID #[id number]) History/Exam Limitations: language barrier (namibian) Onset/Duration Of Symptoms: Days (x10) Current Symptoms Are (Timing): Still Present Additional Complaint(s): 67 year old male with pmHx of DVT, HCL, and recent diagnosis of pneumonia, p resents to ED with a complaint of cough associated with productive yellow/green phlegm, shortness of breath, and subjective fever for 10 days. Patient has a pending appointment with his PCP tomorrow but came to ED today because of worsening symptoms. Otherwise, he denies chest pain, nausea, vomiting, or diarrhea. PCP: [facility] Past Medical History Reviewed: Historical Data, Nursing Documentation, Vital Signs Vital Signs: Last Vital Signs Temp 99.1 F 10/04/18 10:35 Pulse 97 H 10/04/18 10:35 Resp BP 130/81 10/04/18 10:35 Pulse Ox 95 10/04/18 10:35 - Medical History PMH: Deep Vein Thrombosis, HTN, Hypercholesterolemia, Pneumonia, Pulmonary Embolism (x2) Denies: HIV, Chronic Kidney Disease - Surgical History Surgical History: Cholecystectomy, Hernia Repair - Family History Family History: States: Unknown Family Hx, Diabetes, Hypertension - Immunization History Hx Tetanus Toxoid Vaccination: No Hx Influenza Vaccination: No Hx Pneumococcal Vaccination: No - Home Medications Home Medications: Ambulatory Orders Medication Instructions Recorded Simvastatin 20 mg PO DAILY 08/30/16 Promethazine/Codeine 5 ml PO Q12 PRN #100 ml 09/18/17 [Phenergan/Codeine Oral Syrup] Warfarin [Coumadin] 3 mg PO QD5 tab 09/18/17 Cephalexin [Keflex] 500 mg PO QID #28 capsule 11/05/17 - Allergies Allergies/Adverse Reactions: Allergies Allergy/AdvReac Type Severity Reaction Status Date / Time Penicillins Allergy RASH Verified 09/17/17 16:21 Review of Systems ROS Statement: Except As Marked, All Systems Reviewed And Found Negative Constitutional: Positive for: Fever (subjective) Cardiovascular: Negative for: Chest Pain Respiratory: Positive for: Cough, Shortness of Breath, Sputum (yellow/green) Gastrointestinal: Negative for: Nausea, Vomiting, Diarrhea Physical Exam - Reviewed Nursing Documentation Reviewed: Yes Vital Signs Reviewed: Yes - Physical Exam Appears: Positive for: No Acute Distress Head Exam: Positive for: ATRAUMATIC, NORMAL INSPECTION, NORMOCEPHALIC Skin: Positive for: Normal Color Eye Exam: Positive for: Normal appearance ENT: Positive for: Normal ENT Inspection. Negative for: Pharyngeal Erythema Neck: Positive for: Normal, Supple Cardiovascular/Chest: Positive for: Regular Rate, Rhythm Respiratory: Positive for: Decreased Breath Sounds (mildly coarse at bases bilaterally). Negative for: Respiratory Distress Gastrointestinal/Abdominal: Positive for: Soft, Other (umbilical hernia reducible). Negative for: Tenderness Extremity: Positive for: Normal ROM (upper/lower). Negative for: Pedal Edema (bilateral), Calf Tenderness (bilateral) Neurologic/Psych: Positive for: Alert, Oriented. Negative for: Motor/Sensory Deficits - Laboratory Results Result Diagrams: 10/04/18 11:15 10/04/18 11:15 - ECG O2 Sat by Pulse Oximetry: 95 (RA) Pulse Ox Interpretation: Normal Medical Decision Making Medical Decision Making: Time: 1100 Initial Plan: * EKG * Labs * CXR * Solu-medrol 125mg IVP * Duoneb 3ml INH * Tessalon Perles 100 mg PO * Influenza AB Time: 1135 --CXR FINDINGS: LUNGS: The lungs are well inflated and clear. There is multifocal linear atelectasis in the right lower lobe. No focal consolidation. PLEURA: No pleural effusions or pneumothorax. CARDIOVASCULAR: The heart is normal in size. No aortic atherosclerotic calcification present. OSSEOUS STRUCTURES: Within normal limits for the patient's age. VISUALIZED UPPER ABDOMEN: Normal. OTHER FINDINGS: None. IMPRESSION: Multifocal linear atelectasis in the right lower lobe. No lobar pneumonia. Time: 1200 --Negative for flu. -- Scribe Attestation: Documented by Melvi Reed, acting as a scribe for Jose Antonio Coffman MD. Provider Scribe Attestation: All medical record entries made by the Scribe were at my direction and personally dictated by me. I have reviewed the chart and agree that the record accurately reflects my personal performance of the history, physical exam, medical decision making, and the department course for this patient. I have also personally directed, reviewed, and agree with the discharge instructions and disposition.
[2018-10-04] MEDS ORDERED: Albuterol-Ipratrop 3 mg / 0.5 (3 ml) UD ONE (11:06)
[2018-10-04 11:35] LABS: INR 2.2; PROTHROMBIN TIME 25.3 Seconds (9.8-13.1)
[2018-10-04 11:36] LABS: BASO % 0.6 % (0.0-2.0); EOS % 0.9 % (0.0-4.0); LYMPH # 0.8 K/uL (1.0-4.3); LYMPH % 17.3 % (20.0-40.0); MEAN CORPUSCULAR HEMOGLOBIN 28.8 pg (27.0-31.0); MEAN PLATELET VOLUME 8.2 fl (7.2-11.7); MONO # 0.7 K/uL (0.0-0.8); MONO % 15.4 % (0.0-10.0); NEUT # 2.9 K/uL (1.8-7.0); NEUT % 65.8 % (50.0-75.0); NRBC % 0.2 % (0.0-0.0); RBC 4.87 Mil/uL (4.40-5.90); RED CELL DISTRIBUTION WIDTH 13.4 % (11.5-14.5); WHITE BLOOD COUNT 4.5 K/uL (4.8-10.8)
[2018-10-04 11:37] LABS: PARTIAL THROMBOPLASTIN TIME 44.4 Seconds (25.6-37.1)
--- NOTE | 2018-10-04 11:38 | RAD ---
Date of service: 10/04/2018 HISTORY: dyspnea COMPARISON: 09/17/2017 FINDINGS: LUNGS: The lungs are well inflated and clear. There is multifocal linear atelectasis in the right lower lobe. No focal consolidation. PLEURA: No pleural effusions or pneumothorax. CARDIOVASCULAR: The heart is normal in size. No aortic atherosclerotic calcification present. OSSEOUS STRUCTURES: Within normal limits for the patient's age. VISUALIZED UPPER ABDOMEN: Normal. OTHER FINDINGS: None. IMPRESSION: Multifocal linear atelectasis in the right lower lobe. No lobar pneumonia.
[2018-10-04 11:44] LABS: ALB/GLOB RATIO 1.3 (1.0-2.1); ALBUMIN 4.1 g/dL (3.5-5.0); ALT/SGPT 31 U/L (21-72); AST/SGOT 32 U/L (17-59); BLOOD UREA NITROGEN 18 mg/dl (9-20); CALCIUM 8.8 mg/dL (8.4-10.2); GFR NON-AFRICAN AMERICAN > 60
[2018-10-04 11:54] LABS: B-TYPE NATRIURETIC PEPTIDE 39.8 pg/ml (0-900)
--- NOTE | 2018-10-04 12:46 | ED PDOC ---
HPI: SOB/CHF/COPD Time Seen by Provider: 10/04/18 10:49 Chief Complaint (Nursing): Cough, Cold, Congestion Chief Complaint (Provider): shortness of breath History Per: Patient, Desk Manager (Hazel ID#[id number]) History/Exam Limitations: language barrier (citizen of [place]) Onset/Duration Of Symptoms: Days (x10) Current Symptoms Are (Timing): Still Present Additional Complaint(s): 67 year old male with pmHx of DVT, HCL, and recent diagnosis of pneumonia, presents to ED with a complaint of cough associated with productive yellow/green sputum, shortness of breath, and subjective fever for 10 days. Patient has a pending appointment with his PCP tomorrow but came to ED today because of worsening symptoms. Otherwise, he denies any chest pain, nausea, vomiting, or diarrhea. PCP: [facility] Past Medical History Reviewed: Historical Data, Nursing Documentation, Vital Signs Vital Signs: Last Vital Signs Temp 99.1 F 10/04/18 10:35 Pulse 97 H 10/04/18 10:35 Resp BP 130/81 10/04/18 10:35 Pulse Ox 95 10/04/18 10:35 - Medical History PMH: Deep Vein Thrombosis, HTN, Hypercholesterolemia, Pneumonia, Pulmonary Embolism (x2) Denies: HIV, Chronic Kidney Disease - Surgical History Surgical History: Cholecystectomy, Hernia Repair - Family History Family History: States: Unknown Family Hx, Diabetes, Hypertension - Immunization History Hx Tetanus Toxoid Vaccination: No Hx Influenza Vaccination: No Hx Pneumococcal Vaccination: No - Home Medications Home Medications: Ambulatory Orders Medication Instructions Recorded RX: Simvastatin 20 mg PO DAILY 08/30/16 RX: Promethazine/Codeine 5 ml PO Q12 PRN #100 ml 09/18/17 [Phenergan/Codeine Oral Syrup] RX: Warfarin [Coumadin] 3 mg PO QD5 tab 09/18/17 Cephalexin [Keflex] 500 mg PO QID #28 capsule 11/05/17 Albuterol Sulfate [Proair Hfa] 0.09 mg IH Q6H PRN #2 inh 10/04/18 Azithromycin [Zithromax] 250 mg PO DAILY 5 Days tab 10/04/18 Benzonatate [Tessalon Perles] 100 mg PO BID PRN 5 Days sgl 10/04/18 RX: predniSONE [predniSONE Tab] 20 mg PO BID 5 Days tab 10/04/18 - Allergies Allergies/Adverse Reactions: Allergies Allergy/AdvReac Type Severity Reaction Status Date / Time Penicillins Allergy RASH Verified 09/17/17 16:21 Review of Systems ROS Statement: Except As Marked, All Systems Reviewed And Found Negative Constitutional: Positive for: Fever (subjective) Cardiovascular: Negative for: Chest Pain Respiratory: Positive for: Cough, Shortness of Breath, Sputum (yellow/green) Gastrointestinal: Negative for: Nausea, Vomiting, Diarrhea Physical Exam - Reviewed Nursing Documentation Reviewed: Yes Vital Signs Reviewed: Yes - Physical Exam Appears: Positive for: No Acute Distress Head Exam: Positive for: ATRAUMATIC, NORMAL INSPECTION, NORMOCEPHALIC Skin: Positive for: Normal Color Eye Exam: Positive for: Normal appearance ENT: Positive for: Normal ENT Inspection. Negative for: Pharyngeal Erythema Neck: Positive for: Normal, Supple Cardiovascular/Chest: Positive for: Regular Rate, Rhythm Respiratory: Positive for: Decreased Breath Sounds (mildly coarse at bases bilaterally). Negative for: Respiratory Distress Gastrointestinal/Abdominal: Positive for: Soft, Other (umbicial hernia reducible). Negative for: Tenderness Extremity: Positive for: Normal ROM (upper/lower). Negative for: Pedal Edema (bilateral), Calf Tenderness (bilateral) Neurologic/Psych: Positive for: Alert, Oriented. Negative for: Motor/Sensory Deficits - Laboratory Results Result Diagrams: 10/04/18 11:15 10/04/18 11:15 - ECG O2 Sat by Pulse Oximetry: 95 (RA) Pulse Ox Interpretation: Normal Medical Decision Making Medical Decision Making: Time: 1100 Initial Plan: * EKG * Labs * CXR * Solu-medrol 125mg IVP * Duoneb 3ml INH * Tessalon Perles 100mg PO * Influenza AB Time: 1135 --CXR FINDINGS: LUNGS: The lungs are well inflated and clear. There is multifocal linear atelectasis in the right lower lobe. No focal consolidation. PLEURA: No pleural effusions or pneumothorax. CARDIOVASCULAR: The heart is normal in size. No aortic atherosclerotic calcification present. OSSEOUS STRUCTURES: Within normal limits for the patient's age. VISUALIZED UPPER ABDOMEN: Normal. OTHER FINDINGS: None. IMPRESSION: Multifocal linear atelectasis in the right lower lobe. No lobar pneumonia. Time: 1200 --Negative for flu. Scribe Attestation: Documented by Melvi Reed, acting as a scribe for Jose Antonio Coffman MD. Provider Scribe Attestation: All medical record entries made by the Scribe were at my direction and personally dictated by me. I have reviewed the chart and agree that the record accurately reflects my personal performance of the history, physical exam, medic al decision making, and the department course for this patient. I have also personally directed, reviewed, and agree with the discharge instructions and disposition. Disposition - Clinical Impression Clinical Impression: Cough, URI (upper respiratory infection) - Disposition Referrals: [facility] [Outside] - 10/05/18 Condition: STABLE Additional Instructions: Return if not better in 3 days. Prescriptions: Albuterol Sulfate [Proair Hfa] 0.09 mg IH Q6H PRN #2 inh PRN Reason: Wheezing Azithromycin [Zithromax] 250 mg PO DAILY 5 Days tab Benzonatate [Tessalon Perles] 100 mg PO BID PRN 5 Days sgl PRN Reason: Cough RX: predniSONE [predniSONE Tab] 20 mg PO BID 5 Days tab Instructions: Cough, Adult (DC) Forms: [facility] (Telugu), [facility] ED School/Work Excuse Print Language: KYRGYZ
[2018-10-04 13:03] VITALS: BP 111/64; PULSE 85; RESP 18; TEMP 98.5
--- NOTE | 2018-10-04 23:21 | CARD ---
APPROVED REPORT Date of service: 10/04/2018 EKG Measurement Heart [id number] <Conclusion> Normal sinus rhythm Normal ECG
== END 2018-10-04 12:55 | disposition home or self-care (01) ==
LOC: H.ER 10:30
DX: J06.9 Acute upper respiratory infection, unspecified (principal); E78.00 Pure hypercholesterolemia, unspecified; I10 Essential (primary) hypertension; J44.9 Chronic obstructive pulmonary disease, unspecified; Z79.01 Long term (current) use of anticoagulants; Z88.0 Allergy status to penicillin; Z86.711 Personal history of pulmonary embolism
CPT/HCPCS: 71045; 80053; 83880; 84484; 85025; 85610; 85730; 87804; 93005; 94640; 96374; 99283; J2930

== ENCOUNTER 2019-02-27 13:23 | Observation (INO) | payer MEDICARE ==
[2019-02-27 13:23] VITALS: BMI 25.7
--- NOTE | 2019-02-27 13:59 | ED PDOC ---
HPI: Male Pain Time Seen by Provider: 02/27/19 13:41 Chief Complaint (Nursing): Male Genitourinary Chief Complaint (Provider): Male Genitourinary History Per: Patient History/Exam Limitations: no limitations Onset/Duration Of Symptoms: Days (x2) Current Symptoms Are (Timing): Still Present Additional Complaint(s): Patient is a 68 y/o male with an extensive PMHx who presents to the ED for evaluation of dysuria, frequency associated with back pain, chills, and a sub jective fever for the past two days. Patient is s/p prostate biopsy on 12/17/2018. Patient was hospitalized subsequently for post operative infection. Patient denies nausea, vomiting, trouble urinating, and hematuria. Of note, patient stopped taking Coumadin six days ago secondary to episode of hematuria. PCP: Dr. Agustin Liu Past Medical History Reviewed: Historical Data, Nursing Documentation, Vital Signs Vital Signs: Last Vital Signs Temp 99.4 F 02/27/19 13:37 Pulse 102 H 02/27/19 13:37 Resp 18 02/27/19 13:37 BP 122/79 02/27/19 13:37 Pulse Ox 95 02/27/19 13:37 Primary Care Provider: Agustin Liu - Medical History PMH: Deep Vein Thrombosis, HTN, Hypercholesterolemia, Pneumonia, Pulmonary Embolism (x2) Denies: HIV, Chronic Kidney Disease - Surgical History Surgical History: Cholecystectomy, Hernia Repair - Family History Family History: States: Diabetes, Hypertension - Immunization History Hx Tetanus Toxoid Vaccination: No Hx Influenza Vaccination: No Hx Pneumococcal Vaccination: No - Home Medications Home Medications: Ambulatory Orders Medication Instructions Recorded Simvastatin 20 mg PO DAILY 08/30/16 Promethazine/Codeine 5 ml PO Q12 PRN #100 ml 09/18/17 [Phenergan/Codeine Oral Syrup] Warfarin [Coumadin] 3 mg PO QD5 tab 09/18/17 Cephalexin [Keflex] 500 mg PO QID #28 capsule 11/05/17 Albuterol Sulfate [Proair Hfa] 0.09 mg IH Q6H PRN #2 inh 10/04/18 Azithromycin [Zithromax] 250 mg PO DAILY 5 Days tab 10/04/18 Benzonatate [Tessalon Perles] 100 mg PO BID PRN 5 Days sgl 10/04/18 predniSONE [predniSONE Tab] 20 mg PO BID 5 Days tab 10/04/18 - Allergies Allergies/Adverse Reactions: Allergies Allergy/AdvReac Type Severity Reaction Status Date / Time Penicillins Allergy RASH Verified 09/17/17 16:21 Review of Systems ROS Statement: Except As Marked, All Systems Reviewed And Found Negative Constitutional: Positive for: Fever (subjective), Chills Gastrointestinal: Negative for: Nausea, Vomiting Genitourinary Male: Positive for: Dysuria, Frequency. Negative for: Hematuria Musculoskeletal: Positive for: Back Pain Physical Exam - Reviewed Nursing Documentation Reviewed: Yes Vital Signs Reviewed: Yes - Physical Exam Appears: Positive for: No Acute Distress Head Exam: Positive for: ATRAUMATIC, NORMAL INSPECTION, NORMOCEPHALIC Skin: Positive for: Normal Color, Warm, DRY Eye Exam: Positive for: EOMI, Normal appearance, PERRL Neck: Positive for: Normal, Painless ROM Cardiovascular/Chest: Positive for: Regular Rate, Rhythm. Negative for: Murmur Respiratory: Positive for: Normal Breath Sounds. Negative for: Respiratory Distress Gastrointestinal/Abdominal: Positive for: Normal Exam, Soft. Negative for: Tenderness Back: Positive for: Normal Inspection. Negative for: L CVA Tenderness, R CVA Tenderness Extremity: Positive for: Normal ROM. Negative for: Pedal Edema, Deformity Neurological/Psych: Positive for: Alert, Oriented (x3) - Laboratory Results Result Diagrams: 02/27/19 14:31 02/27/19 14:31 - ECG O2 Sat by Pulse Oximetry: 95 (RA) Pulse Ox Interpretation: Normal Medical Decision Making Medical Decision Making: Time: 1350 Plan: Will obtain urine blood work and CT. Considering Pyelonephritis and UTI. VBG CT Abd & Pelvis w/o PO or IV Contrast CMP CBC Blood Culture Urine Culture UA ----- Scribe Attestation: Documented by Sherwin Robbins, acting as a scribe for Freddy Pressley MD. Provider Scribe Attestation: All medical record entries made by the Scribe were at my direction and personally dictated by me. I have reviewed the chart and agree that the record accurately reflects my personal performance of the history, physical exam, medical decision making, and the department course for this patient. I have also personally directed, reviewed, and agree with the discharge instructions and disposition. Disposition - Clinical Impression Clinical Impression: Urinary tract infection - Patient ED Disposition Is Patient to be Admitted: Transfer of Care - Disposition Disposition: Transfer of Care Disposition Time: 14:58 Condition: FAIR Forms: [employer] (Moldovan) Patient Signed Over To: Destiny Davis (Pending CT and dispo)
[2019-02-27 14:38] LABS: BASO % 0.3 % (0.0-2.0); EOS % 0.5 % (0.0-4.0); HEMOGLOBIN 12.9 g/dL (12.0-18.0); LYMPH # 0.9 K/uL (1.0-4.3); LYMPH % 9.6 % (20.0-40.0); MEAN CELL VOLUME 85.5 fl (80.0-94.0); MEAN CORPUSCULAR HEMOGLOBIN 28.4 pg (27.0-31.0); MEAN CORPUSCULAR HGB CONC 33.2 g/dL (33.0-37.0); MEAN PLATELET VOLUME 7.2 fl (7.2-11.7); MONO % 10.9 % (0.0-10.0); NEUT # 7.3 K/uL (1.8-7.0); NEUT % 78.7 % (50.0-75.0); PLATELET COUNT 211 K/uL (130-400); RBC 4.53 Mil/uL (4.40-5.90); WHITE BLOOD COUNT 9.2 K/uL (4.8-10.8)
[2019-02-27 14:40] LABS: VENOUS BLOOD GAS BASE EXCESS 3.2 mmol/L (0.0-2.0); VENOUS BLOOD GAS PCO2 42 mmHg (40-60); VENOUS BLOOD GAS PO2 43 mm/Hg (30-55); VENOUS BLOOD PH 7.43 (7.32-7.43)
[2019-02-27 14:46] LABS: ALB/GLOB RATIO 1.3 (1.0-2.1); ALT/SGPT 31 U/L (21-72); AST/SGOT 30 U/L (17-59); BLOOD UREA NITROGEN 16 mg/dl (9-20); CALCIUM 8.5 mg/dL (8.4-10.2); GFR NON-AFRICAN AMERICAN > 60
[2019-02-27 14:50] LABS: SQUAMOUS EPITHIAL < 1 /hpf (0-5); URINE AMORPHOUS SEDIMENT FEW /ul (<OCC); URINE BACTERIA MOD (<OCC); URINE BILIRUBIN NEGATIVE (NEGATIVE); URINE BLOOD MODERATE (NEGATIVE); URINE CLARITY CLOUDY (Clear); URINE COLOR YELLOW (YELLOW); URINE GLUCOSE (UA) NEG (NEGATIVE); URINE LEUKOCYTE ESTERASE LARGE Leu/uL (Negative); URINE PROTEIN NEGATIVE (NEGATIVE); URINE UROBILINOGEN 0.2-1.0 mg/dL (0.2-1.0); WBC CLUMPS MANY /hpf
[2019-02-27] MEDS ORDERED: Ciprofloxacin 400mg/200ml D5W 400 MG/200 ML BAG IVPB STA (14:57)
--- NOTE | 2019-02-27 15:02 | CT ---
Date of service: 02/27/2019 PROCEDURE: CT Abdomen and Pelvis without intravenous contrast HISTORY: Evaluate for renal stone COMPARISON: 11/05/2017 TECHNIQUE: CT scan of the abdomen and pelvis was performed without administration of intravenous contrast. Oral contrast was not administered. Coronal and sagittal reformatted images were obtained. Radiation dose: Total exam DLP = 739.14 mGy-cm. This CT exam was performed using one or more of the following dose reduction techniques: Automated exposure control, adjustment of the mA and/or kV according to patient size, and/or use of iterative reconstruction technique. FINDINGS: LOWER THORAX: There is subsegmental atelectasis in the lingula and lower lobes. There are stable small nodules in the right middle and lower lobes, likely post inflammatory. LIVER: Normal in size. No gross lesion or ductal dilatation. GALLBLADDER AND BILE DUCTS: Surgically absent. PANCREAS: Normal in size. No gross lesion or ductal dilatation. SPLEEN: Normal in size. ADRENALS: Normal in size. No discrete nodule. KIDNEYS AND URETERS: Both kidneys are normal in size. No nephrolithiasis. There is mild right hydronephrosis and mild diffuse dilatation of the right ureteral without evidence for distal obstruction. There is mild right perinephric fat stranding. No left hydronephrosis. VASCULATURE: Normal in caliber. No aortic aneurysm. No aortic atherosclerotic calcification or mural plaque present. An infrarenal IVC filter remains in place. BOWEL: Evaluation of the bowel is limited in the absence of oral contrast. The small bowel loops are normal in caliber. The colon is normal in size. No bowel dilatation or wall thickening. No bowel obstruction. APPENDIX: Normal appendix. PERITONEUM: No free fluid. No free air. LYMPH NODES: No enlarged lymph nodes. BLADDER: There is moderate circumferential mural thickening of the urinary bladder wall with mild perivesical fat stranding. REPRODUCTIVE: There is mild enlargement of the prostate gland. BONES: No acute fracture. Within normal limits for the patient's age. OTHER FINDINGS: Bilateral small fat containing inguinal hernias. There is a small fat containing umbilical hernia. There is a small sliding hiatal hernia. IMPRESSION: 1. No evidence for nephrolithiasis or obstructive uropathy. 2. Mild right hydronephrosis, mild diffuse dilatation of the right ureteral, mild right perinephric fat stranding and moderate diffuse circumferential mural thickening of the urinary bladder with mild perivesical fat stranding could represent acute right pyelitis/ ureteritis and cystitis. Please correlate with urine analysis. 3. Mild enlargement of the prostate gland. Please correlate with PSA levels.
[2019-02-27] MEDS ORDERED: Ciprofloxacin 400mg/200ml D5W 400 MG/200 ML BAG IVPB ONE (15:15)
--- NOTE | 2019-02-27 15:27 | ED PDOC ---
- Laboratory Results Result Diagrams: 02/28/19 05:15 02/28/19 05:15 Lab Results: pO2 43 mm/Hg (30-55) 02/27/19 14:37 VBG pH 7.43 (7.32-7.43) 02/27/19 14:37 VBG pCO2 42 mmHg (40-60) 02/27/19 14:37 VBG HCO3 27.0 mmol/L 02/27/19 14:37 VBG Total CO2 29.2 mmol/L (22-28) H 02/27/19 14:37 VBG O2 Sat (Calc) 86.0 % (40-65) H 02/27/19 14:37 VBG Base Excess 3.2 mmol/L (0.0-2.0) H 02/27/19 14:37 VBG Potassium 3.5 mmol/L (3.6-5.2) L 02/27/19 14:37 Sodium 135.0 mmol/L (132-148) 02/27/19 14:37 Chloride 102.0 mmol/L (98-107) 02/27/19 14:37 Glucose 110 mg/dL (75-110) 02/27/19 14:37 Lactate 0.9 mmol/L (0.7-2.1) 02/27/19 14:37 FiO2 21.0 % 02/27/19 14:37 Total Bilirubin 0.7 mg/dl (0.2-1.3) 02/27/19 14:31 AST 30 U/L (17-59) 02/27/19 14:31 ALT 31 U/L (21-72) 02/27/19 14:31 Alkaline Phosphatase 68 U/L (38-126) 02/27/19 14:31 Total Protein 7.0 G/DL (6.3-8.2) 02/27/19 14:31 Albumin 4.0 g/dL (3.5-5.0) 02/27/19 14:31 Globulin 3.0 gm/dL (2.2-3.9) 02/27/19 14:31 Albumin/Globulin Ratio 1.3 (1.0-2.1) 02/27/19 14:31 Urine Color Yellow (YELLOW) 02/27/19 14:41 Urine Clarity Cloudy (Clear) 02/27/19 14:41 Urine pH 6.0 (5.0-8.0) 02/27/19 14:41 Ur Specific [place] 1.009 (1.003-1.030) 02/27/19 14:41 Urine Protein Negative mg/dL (NEGATIVE) 02/27/19 14:41 Urine Glucose (UA) Neg mg/dL (NEGATIVE) 02/27/19 14:41 Urine Ketones Negative mg/dL (NEGATIVE) 02/27/19 14:41 Urine Blood Moderate (NEGATIVE) 02/27/19 14:41 Urine Nitrate Negative (NEGATIVE) 02/27/19 14:41 Urine Bilirubin Negative (NEGATIVE) 02/27/19 14:41 Urine Urobilinogen 0.2-1.0 mg/dL (0.2-1.0) 02/27/19 14:41 Ur Leukocyte Esterase Large Ammon/uL (Negative) 02/27/19 14:41 Urine RBC (Auto) 9 /hpf (0-3) H 02/27/19 14:41 Urine WBC Clumps (Auto) Many /hpf (NONE) H 02/27/19 14:41 Urine Microscopic WBC 136 /hpf (0-5) H 02/27/19 14:41 Ur Squamous Epith Cells < 1 /hpf (0-5) 02/27/19 14:41 Amorphous Sediment Few /ul (<OCC) H 02/27/19 14:41 Urine Bacteria Mod (<OCC) H 02/27/19 14:41 - ECG O2 Sat by Pulse Oximetry: 95 (RA) Pulse Ox Interpretation: Normal Medical Decision Making Medical Decision Making: Time: 1500 Patient endorsed to provider from Freddy Pressley MD. Workup for UTI vs Pyelonephritis. Cultures sent, patient started on Cipro. Patient not meeting sepsis criteria. Normal lactate. Patient has been afebrile. Time: 1513 FINDINGS: LOWER THORAX: There is subsegmental atelectasis in the lingula and lower lobes. There are stable small nodules in the right middle and lower lobes, likely post inflammatory. LIVER: Normal in size. No gross lesion or ductal dilatation. GALLBLADDER AND BILE DUCTS: Surgically absent. PANCREAS: Normal in size. No gross lesion or ductal dilatation. SPLEEN: Normal in size. ADRENALS: Normal in size. No discrete nodule. KIDNEYS AND URETERS: Both kidneys are normal in size. No nephrolithiasis. There is mild right hydronephrosis and mild diffuse dilatation of the right ureteral without evidence for distal obstruction. There is mild right perinephric fat stranding. No left hydronephrosis. VASCULATURE: Normal in caliber. No aortic aneurysm. No aortic atherosclerotic calcification or mural plaque present. An infrarenal IVC filter remains in place. BOWEL: Evaluation of the bowel is limited in the absence of oral contrast. The small bowel loops are normal in caliber. The colon is normal in size. No bowel dilatation or wall thickening. No bowel obstruction. APPENDIX: Normal appendix. PERITONEUM: No free fluid. No free air. LYMPH NODES: No enlarged lymph nodes. BLADDER: There is moderate circumferential mural thickening of the urinary bladder wall with mild perivesical fat stranding. REPRODUCTIVE: There is mild enlargement of the prostate gland. BONES: No acute fracture. Within normal limits for the patient's age. OTHER FINDINGS: Bilateral small fat containing inguinal hernias. There is a small fat containing umbilical hernia. There is a small sliding hiatal hernia. IMPRESSION: 1. No evidence for nephrolithiasis or obstructive uropathy. 2. Mild right hydronephrosis, mild diffuse dilatation of the right ureteral, mild right perinephric fat stranding and moderate diffuse circumferential mural thickening of the urinary bladder with mild perivesical fat stranding could represent acute right pyelitis/ ureteritis and cystitis. Please correlate with urine analysis. 3. Mild enlargement of the prostate gland. Please correlate with PSA levels. Time: 1514 CT results are back. Will admit patient. Scribe Attestation: Documented by Sherwin Robbins, acting as a scribe for Destiny Davis MD. Provider Scribe Attestation: All medical record entries made by the Scribe were at my direction and personally dictated by me. I have reviewed the chart and agree that the record accurately reflects my personal performance of the history, physical exam, medical decision making, and the department course for this patient. I have also personally directed, reviewed, and agree with the discharge instructions and disposition. Disposition - Clinical Impression Clinical Impression: Urinary tract infection - POA Present On Arrival: None - Disposition Disposition: Admitted as In-Patient Disposition Time: 15:15 Condition: FAIR
[2019-02-27 15:34] LABS: LYMPHOCYTE 10 % (20-50); MONOCYTE 9 % (0-10); NEUTROPHIL 78 % (42-75); PLATELET ESTIMATE NORMAL (NORMAL); REACTIVE LYMPHOCYTES 3 % (0-0); TOTAL CELLS COUNTED 100
[2019-02-27] MEDS ORDERED: Lidocaine 5% Patch TD ONE (20:12)
[2019-02-27] MEDS: Ciprofloxacin 400mg/200ml D5W 400 MG/200 ML BAG IVPB SCH (21:53)
[2019-02-28 06:26] LABS: HEMOGLOBIN 12.9 g/dL (12.0-18.0); MEAN CELL VOLUME 87.2 fl (80.0-94.0); MEAN CORPUSCULAR HEMOGLOBIN 28.1 pg (27.0-31.0); MEAN CORPUSCULAR HGB CONC 32.2 g/dL (33.0-37.0); RBC 4.59 Mil/uL (4.40-5.90); RED CELL DISTRIBUTION WIDTH 13.3 % (11.5-14.5); WHITE BLOOD COUNT 8.5 K/uL (4.8-10.8)
[2019-02-28 06:31] LABS: INR 1.1; PROTHROMBIN TIME 12.8 Seconds (9.8-13.1)
[2019-02-28 06:32] LABS: PARTIAL THROMBOPLASTIN TIME 28.8 Seconds (25.6-37.1)
[2019-02-28 06:36] LABS: ALB/GLOB RATIO 1.2 (1.0-2.1); ALBUMIN 3.9 g/dL (3.5-5.0); ALT/SGPT 33 U/L (21-72); AST/SGOT 34 U/L (17-59); BLOOD UREA NITROGEN 15 mg/dl (9-20); CALCIUM 8.5 mg/dL (8.4-10.2); GFR NON-AFRICAN AMERICAN > 60; HDL CHOLESTEROL 40 MG/DL (30-70)
[2019-02-28 06:49] LABS: LDL CHOLESTEROL 78 mg/dL (0-129)
--- NOTE | 2019-02-28 08:23 | CP.PCM.HP ---
<Urmila Durham - Last Filed: 02/28/19 09:16> History of Present Illness - History of Present Illness History of Present Illness: 68 y/o male with a PMHx remarkable for PE (s/p IVC filter 2014), DVTx3, and hypertriglyceridemia presents to the ED for evaluation of dysuria, frequency associated with low back pain, chills, and a subjective fever for the past two days. Patient is s/p prostate biopsy on 12/17/2018. Patient was hospitalized subsequently in [facility] for post operative infection. Currently denies nausea, vomiting, trouble urinating, or hematuria. Of note, patient stopped t aking Coumadin six days ago secondary to episode of hematuria. PMD: at clinic PMHx: PE, DVTx3, hypertriglyceridemia, HTN Meds: Warfarin, Simvastatin ALL: penicillins (mild rash) PsurgHx: IVC Filter 2014, cholecystecomy, umbilicial hernia repair PHopsHx: pneumonia 2015 Social: denies tobacco/etoh abuse, denies drug abuse FamilyHx: denies CAD, coagulapathy, MA, stroke Present on Admission - Present on Admission Any Indicators Present on Admission: No History of DVT/PE: Yes Review of Systems - Review of Systems All systems: reviewed and no additional remarkable complaints except (HPI) Past Patient History - Past Medical History & Family History Past Medical History?: Yes - Past Social History Smoking Status: Former Smoker - CARDIAC Hx Hypercholesterolemia: Yes Hx Hypertension: Yes - PULMONARY Hx Pneumonia: Yes Hx Pulmonary Embolism: Yes (x2) - NEUROLOGICAL Hx Neurological Disorder: No - HEENT Other/Comment: wears eyeglasses - RENAL Hx Chronic Kidney Disease: No - ENDOCRINE/METABOLIC Hx Endocrine Disorders: No - HEMATOLOGICAL/ONCOLOGICAL Hx Human Immunodeficiency Virus (HIV): No - INTEGUMENTARY Hx Dermatological Problems: No - MUSCULOSKELETAL/RHEUMATOLOGICAL Hx Musculoskeletal Disorders: No Hx Falls: No - GASTROINTESTINAL Hx Gastrointestinal Disorders: No - GENITOURINARY/GYNECOLOGICAL Hx Genitourinary Disorders: No - PSYCHIATRIC Hx Psychophysiologic Disorder: No Hx Emotional Abuse: No Hx Physical Abuse: No Hx Substance Use: No - SURGICAL HISTORY Hx Cholecystectomy: Yes - ANESTHESIA Hx Anesthesia: Yes Hx Anesthesia Reactions: No Hx Malignant Hyperthermia: No Meds Allergies/Adverse Reactions: Allergies Allergy/AdvReac Type Severity Reaction Status Date / Time Penicillins Allergy RASH Verified 09/17/17 16:21 Physical Exam - Constitutional Appears: Non-toxic, No Acute Distress - Head Exam Head Exam: NORMAL INSPECTION - Eye Exam Eye Exam: EOMI, PERRL - ENT Exam ENT Exam: Mucous Membranes Moist - Neck Exam Neck exam: Positive for: Full Rom. Negative for: Lymphadenopathy, Tenderness, Thyromegaly - Respiratory Exam Respiratory Exam: Clear to Auscultation Bilateral, NORMAL BREATHING PATTERN. absent: Rales, Wheezes - Cardiovascular Exam Cardiovascular Exam: REGULAR RHYTHM, +S1, +S2. absent: Tachycardia - GI/Abdominal Exam GI & Abdominal Exam: Normal Bowel Sounds, Soft. absent: Distended, Tenderness - Extremities Exam Extremities exam: Negative for: calf tenderness, pedal edema - Back Exam Back exam: NORMAL INSPECTION. absent: CVA tenderness (L), CVA tenderness (R) - Neurological Exam Neurological exam: Alert, CN II-XII Intact, Oriented x3 - Psychiatric Exam Psychiatric exam: Normal Mood - Skin Skin Exam: Dry, Warm Results - Vital Signs Recent Vital Signs: Last Vital Signs Temp 98.4 F 02/28/19 07:54 Pulse 86 02/28/19 07:54 Resp 20 02/28/19 07:54 BP 131/77 02/28/19 07:54 Pulse Ox 93 L 02/28/19 07:54 - Labs Result Diagrams: 02/28/19 05:15 02/28/19 05:15 Labs: Laboratory Results - last 24 hr 02/27/19 02/27/19 02/27/19 14:31 14:31 14:37 WBC 9.2 D RBC 4.53 Hgb 12.9 Hct 38.8 MCV 85.5 D MCH 28.4 MCHC 33.2 RDW 13.0 Plt Count 211 MPV 7.2 Neut % (Auto) 78.7 H Lymph % (Auto) 9.6 L [place] % (Auto) 10.9 H Eos % (Auto) 0.5 Baso % (Auto) 0.3 Neut # (Auto) 7.3 H Lymph # (Auto) 0.9 L [place] # (Auto) 1.0 H Eos # (Auto) 0.0 Baso # (Auto) 0.0 Neutrophils % (Manual) 78 H Lymphocytes % (Manual) 10 L Reactive Lymphs % 3 H Monocytes % (Manual) 9 Platelet Estimate Normal PT INR APTT pO2 43 VBG pH 7.43 VBG pCO2 42 VBG HCO3 27.0 VBG Total CO2 29.2 H VBG O2 Sat (Calc) 86.0 H VBG Base Excess 3.2 H VBG Potassium 3.5 L Glucose 110 Lactate 0.9 FiO2 21.0 Sodium 136 135.0 Potassium 3.6 Chloride 99 102.0 Carbon Dioxide 27 Anion Gap 14 BUN 16 Creatinine 0.9 Est GFR ( Amer) > 60 Est GFR (Non-Af Amer) > 60 Random Glucose 111 H Calcium 8.5 Total Bilirubin 0.7 AST 30 ALT 31 Alkaline Phosphatase 68 Total Protein 7.0 Albumin 4.0 Globulin 3.0 Albumin/Globulin Ratio 1.3 Triglycerides Cholesterol LDL Cholesterol Direct HDL Cholesterol Vitamin B12 TSH 3rd Generation Venous Blood Potassium 3.5 L Urine Color Urine Clarity Urine pH Ur Specific [place] Urine Protein Urine Glucose (UA) Urine Ketones Urine Blood Urine Nitrate Urine Bilirubin Urine Urobilinogen Ur Leukocyte Esterase Urine RBC (Auto) Urine WBC Clumps (Auto) Urine Microscopic WBC Ur Squamous Epith Cells Amorphous Sediment Urine Bacteria 02/27/19 02/28/19 02/28/19 14:41 05:15 05:15 WBC 8.5 RBC 4.59 Hgb 12.9 Hct 40.0 MCV 87.2 MCH 28.1 MCHC 32.2 L RDW 13.3 Plt Count 219 MPV Neut % (Auto) Lymph % (Auto) [place] % (Auto) Eos % (Auto) Baso % (Auto) Neut # (Auto) Lymph # (Auto) [place] # (Auto) Eos # (Auto) Baso # (Auto) Neutrophils % (Manual) Lymphocytes % (Manual) Reactive Lymphs % Monocytes % (Manual) Platelet Estimate PT 12.8 INR 1.1 APTT 28.8 pO2 VBG pH VBG pCO2 VBG HCO3 VBG Total CO2 VBG O2 Sat (Calc) VBG Base Excess VBG Potassium Glucose Lactate FiO2 Sodium Potassium Chloride Carbon Dioxide Anion Gap BUN Creatinine Est GFR ( Amer) Est GFR (Non-Af Amer) Random Glucose Calcium Total Bilirubin AST ALT Alkaline Phosphatase Total Protein Albumin Globulin Albumin/Globulin Ratio Triglycerides Cholesterol LDL Cholesterol Direct HDL Cholesterol Vitamin B12 TSH 3rd Generation Venous Blood Potassium Urine Color Yellow Urine Clarity Cloudy Urine pH 6.0 Ur Specific [place] 1.009 Urine Protein Negative Urine Glucose (UA) Neg Urine Ketones Negative Urine Blood Moderate Urine Nitrate Negative Urine Bilirubin Negative Urine Urobilinogen 0.2-1.0 Ur Leukocyte Esterase Large Urine RBC (Auto) 9 H Urine WBC Clumps (Auto) Many H Urine Microscopic WBC 136 H Ur Squamous Epith Cells < 1 Amorphous Sediment Few H Urine Bacteria Mod H 02/28/19 05:15 WBC RBC Hgb Hct MCV MCH MCHC RDW Plt Count MPV Neut % (Auto) Lymph % (Auto) [place] % (Auto) Eos % (Auto) Baso % (Auto) Neut # (Auto) Lymph # (Auto) [place] # (Auto) Eos # (Auto) Baso # (Auto) Neutrophils % (Manual) Lymphocytes % (Manual) Reactive Lymphs % Monocytes % (Manual) Platelet Estimate PT INR APTT pO2 VBG pH VBG pCO2 VBG HCO3 VBG Total CO2 VBG O2 Sat (Calc) VBG Base Excess VBG Potassium Glucose Lactate FiO2 Sodium 136 Potassium 3.8 Chloride 99 Carbon Dioxide 29 Anion Gap 12 BUN 15 Creatinine 1.0 Est GFR ( Amer) > 60 Est GFR (Non-Af Amer) > 60 Random Glucose 105 Calcium 8.5 Total Bilirubin 0.8 AST 34 ALT 33 Alkaline Phosphatase 72 Total Protein 7.1 Albumin 3.9 Globulin 3.2 Albumin/Globulin Ratio 1.2 Triglycerides 139 Cholesterol 142 LDL Cholesterol Direct 78 HDL Cholesterol 40 Vitamin B12 704 TSH 3rd Generation 3.43 Venous Blood Potassium Urine Color Urine Clarity Urine pH Ur Specific [place] Urine Protein Urine Glucose (UA) Urine Ketones Urine Blood Urine Nitrate Urine Bilirubin Urine Urobilinogen Ur Leukocyte Esterase Urine RBC (Auto) Urine WBC Clumps (Auto) Urine Microscopic WBC Ur Squamous Epith Cells Amorphous Sediment Urine Bacteria Assessment & Plan - Assessment and Plan (Free Text) Assessment: 68 yo male patient admitted with pyelonephritis. Plan: - VSS - Abd CT: No evidence for nephrolithiasis or obstructive uropathy. Mild right p erinephric fat stranding and moderate diffuse circumferential mural thickening of the urinary bladder with mild perivesical fat stranding could represent acute right pyelitis/ ureteritis and cystitis. Right hydronephrosis. No left hydronephrosis. - wbc WNL - UA positive microscopy WBC and RBC - Urology consulted, recs appreciated - c/ cipro IV BID - resume home meds - rest of plan as ordered case seen and examined with Dr Montilla <Ryan Montilla - Last Filed: 03/01/19 08:54> Results - Vital Signs Recent Vital Signs: Last Vital Signs Temp 97.6 F 03/01/19 07:54 Pulse 83 03/01/19 07:54 Resp 20 03/01/19 07:54 BP 110/74 03/01/19 07:54 Pulse Ox 95 03/01/19 07:54 - Labs Result Diagrams: 02/28/19 05:15 02/28/19 05:15 Assessment & Plan - Assessment and Plan (Free Text) Assessment: Patient was personally seen and examined by me in rounds with residents. Available labs and diagnostic data reviewed. Case, Patient's condition and management plan discussed with residents in rounds. Agree with resident's progress note. Plan: As ordered.
[2019-02-28] MEDS: Ciprofloxacin 400mg/200ml D5W 400 MG/200 ML BAG IVPB SCH ×2 (08:30→16:25)
[2019-02-28] MEDS: Sodium Chloride 0.45% 1,000 ML IV SCH ×2 (12:47→23:00)
--- NOTE | 2019-02-28 20:20 | CP.PCM.PN ---
Subjective - Date & Time of Evaluation Date of Evaluation: 02/28/19 Time of Evaluation: 20:12 - Subjective Subjective: 68 year old hisp male admitted with "Pylonephritis" who has hx of neg prostate biopsy Dr Arreola and subsequent sepsis at [facility].Symtoms consistanr with minimal hydro (IF any) possibly due to prostatic swelling. Suggest fully treat pt with sensitive antibiotcs add flomax urological follow up on discharge.[place] Objective - Vital Signs/Intake and Output Vital Signs (last 24 hours): Temp Pulse Resp BP Pulse Ox 98.2 F 85 19 109/74 94 L 02/28/19 15:23 02/28/19 15:23 02/28/19 15:23 02/28/19 15:23 02/28/19 15:23 - Medications Medications: Current Medications Acetaminophen (Tylenol 325mg Tab) 650 mg PO Q6 PRN PRN Reason: Pain, severe (8-10) Atorvastatin Calcium (Lipitor) 40 mg PO HS [facility] Last Admin: 02/27/19 21:53 Dose: 40 mg Home Med (Meloxicam [Mobic]) 15 mg PO DAILY [facility] Ciprofloxacin (Cipro 400mg/200ml Dsw) 400 mg in 200 mls @ 200 mls/hr IVPB BID [facility]; Protocol Last Admin: 02/28/19 16:25 Dose: 200 mls/hr Sodium Chloride (Sodium Chloride 0.45%) 1,000 mls @ 80 mls/hr IV .[id number] [facility] Stop: 03/01/19 10:16 Last Admin: 02/28/19 12:47 Dose: 80 mls/hr - Labs Labs: 02/28/19 05:15 02/28/19 05:15 PT 12.8 Seconds (9.8-13.1) 02/28/19 05:15 INR 1.1 02/28/19 05:15 APTT 28.8 Seconds (25.6-37.1) 02/28/19 05:15
[2019-03-01 00:22] VITALS: O2SAT 95
[2019-03-01 07:55] VITALS: BP 110/74; PULSE 83; RESP 20; TEMP 97.6
[2019-03-01] MEDS: Ciprofloxacin 400mg/200ml D5W 400 MG/200 ML BAG IVPB SCH (08:29)
== END 2019-03-01 10:53 | disposition home or self-care (01) ==
LOC: H.ER 13:23 → INTOOBSV 15:34 → H.ERHOLD 15:34 → H.MEDSURG1 18:05
PROVIDERS: ADMIT Internal Medicine; ATTEND Internal Medicine
DX: N13.6 Pyonephrosis (principal); I10 Essential (primary) hypertension; E78.00 Pure hypercholesterolemia, unspecified; Z86.711 Personal history of pulmonary embolism; Z86.718 Personal history of other venous thrombosis and embolism; Z87.891 Personal history of nicotine dependence
CPT/HCPCS: 36415; 74176; 80053; 80061; 81003; 82607; 82803; 84443; 85025; 85027; 85610; 85730; 87040; 87086; 87181; 96365; 96366; 99283; G0378; J0744; J7030